=== PATIENT | female | born 1965 | race Caucasian/White ===

== ENCOUNTER 2019-07-11 16:09 | Emergency (ER) | payer OTHER, SELFPAY ==
--- NOTE | 2019-07-11 16:19 | ED.GENADULT ---
HPI - General Adult General Chief complaint: Unspecified Stated complaint: headache/diarrhea Time Seen by Provider: 07/11/19 16:36 Source: patient and RN notes reviewed Mode of arrival: ambulatory Limitations: no limitations History of Present Illness HPI narrative: Patient's had a one-week history of beginning on , 07/04/2019 of loose watery stools. She has had 5-6 loose stools per day without any blood in the stools or black stools. She has not had any heartburn or reflux sensation. She has had no nausea and no vomiting. She has not had any fever, no ear pain, no nasal drainage, no sore throat. For the past 1 month beginning in May 2019 she has felt fatigued, more tired than normal, and does not tolerate the cold well. She thinks she might have hypothyroidism. She contacted her PCP and they are arranging for her to see an aircraft technician on July 22, 2019. She has had a 35 pound weight gain in the past 1 year without change in her diet. There is no personal or family medical history of hypo-or hyperthyroidism. She has not had any feeling of irregular heartbeat or slow heart rate. She has not had any leg swelling. She has had no chest pain no shortness of breath. She has had no abdominal pain. She drives a school bus. She is not aware of having had contact with anyone with any types of gastroenteritis or intestinal problems. She has no history of irritable bowel syndrome, Crohn's disease, ulcerative colitis, or pancreatitis. She has had a cholecystectomy and a hysterectomy. At this time she is wanting something for the diarrhea in order to wait for the timeframe that she sees a scrap dealer, knowing that we cannot perform blood test at this facility. Related Data Home Medications Medication Instructions Recorded Confirmed atorvastatin 10 mg PO DAILY 07/11/19 07/11/19 buspirone 5 mg PO BID 07/11/19 07/11/19 diclofenac sodium 75 mg PO BID 07/11/19 07/11/19 lisinopril 20 mg PO DAILY 07/11/19 07/11/19 Allergies Allergy/AdvReac Type Severity Reaction Status Date / Time amoxicillin Allergy Mild Unverified 12/20/13 22:51 doxycycline Allergy Unknown Unverified 12/20/13 22:51 Sulfa (Sulfonamide Allergy Unknown Verified 12/20/13 22:51 Antibiotics) tetracycline Allergy Unknown Verified 12/20/13 22:51 Review of Systems Review of Systems: Narrative: CONSTITUTIONAL: Denies fever, chills, or sweats. Noncontributory except as pertains to the past medical history and history of present illness. EYES: Denies visual changes, redness, or discharge. ENT: Denies rhinorrhea, congestion, sore throat, or otalgia. CARDIOVASCULAR: Denies chest pain, palpitations, or edema. RESPIRATORY: Denies cough or dyspnea. GASTROINTESTINAL: Denies abdominal pain, nausea, vomiting, or diarrhea. GENITOURINARY: Denies dysuria or hematuria. SKIN: Denies rash or itching. MUSCULOSKELETAL: Denies back pain, joint pain, or myalgia. NEUROLOGIC: Denies headache, numbness, or weakness. PSYCHIATRIC: Denies anxiety or depression. PMFSH Social History Social History Gender identity (if verbalized by the patient): Female Comments At time of signature, I have reviewed and agree with nursing past medical, surgical, social, and family history.Please see nursing chart for further information. There is no relevant family history pertinent to the presenting complaint. Exam Narrative: Exam Narrative: GENERAL: Well-appearing, well-nourished, and in no acute distress. HEAD: Normocephalic, atraumatic. EYES: PERRLA and EOMI. EARS: TM's clear bilaterally and the canals are clear. NOSE: Nares clear, no rhinorrhea or epistaxis. THROAT:Mucous membranes moist.Oropharynx normal without erythema or exudates. NECK: Supple. No adenopathy of the neck, supraclavicular, axillary, or inguinal areas. RESPIRATORY: No respiratory distress. Airway patent. Respirations non-labored. Clear to auscultation. There are no wheezes, no rales, no retractions, no use acc
[2019-07-11 16:29] VITALS: BP 130/73; PULSE 87; RESP 18; TEMP 37.2; O2SAT 98
== END 2019-07-11 16:52 | disposition home or self-care (01) ==
LOC: EXPCOLL 16:22
PROVIDERS: Emergency Provider Family Medicine; PCP Nurse Practitioner Family
DX: R19.7 Diarrhea, unspecified (principal); E78.00 Pure hypercholesterolemia, unspecified; I10 Essential (primary) hypertension; F41.9 Anxiety disorder, unspecified; F32.9 Major depressive disorder, single episode, unspecified
CPT/HCPCS: 99211; G0463

== ENCOUNTER 2022-03-13 18:41 | Emergency (ER) | payer OTHER, SELFPAY ==
[2022-03-13 18:57] VITALS: BP 136/71; PULSE 91; RESP 16; TEMP 36.3; O2SAT 98
--- NOTE | 2022-03-13 19:41 | ED.GENADULT ---
HPI - General Adult General Chief complaint: Upper Respiratory Infection Stated complaint: headache,[place] Source: patient Mode of arrival: ambulatory Limitations: no limitations History of Present Illness HPI narrative: Patient presents for evaluation of sinus symptoms for the last 2 weeks. Symptoms include sinus congestion, thick mucopurulent discharge, and headache. She has an occasional cough but smokes half pack per day. She denies any fever, chills, nausea, vomiting, otalgia, sore throat, shortness of breath. She states several individuals around her have been sick as of late but she is unsure what their exact diagnosis was. She took 2 COVID test at home, both of which were negative. She has been taking Mucinex DM which seems to help. No additional complaints or concerns. Related Data Home Medications Medication Instructions Recorded Confirmed atorvastatin 10 mg tablet 10 mg PO DAILY 03/13/22 03/13/22 cholestyramine (with sugar) 4 gram 1 ea PO DAILY 03/13/22 03/13/22 powder for susp in a packet diclofenac sodium 75 mg 75 mg PO DIRECTED 03/13/22 03/13/22 tablet,delayed release Allergies Allergy/AdvReac Type Severity Reaction Status Date / Time amoxicillin Allergy Mild Rash Verified 03/13/22 18:51 doxycycline Allergy Unknown Rash Verified 03/13/22 18:51 Sulfa (Sulfonamide Allergy Unknown Rash Verified 03/13/22 18:51 Antibiotics) tetracycline Allergy Unknown Rash Verified 03/13/22 18:51 Review of Systems Review of Systems: CONSTITUTIONAL: Denies fever, chills, or sweats. EYES: Denies visual changes, redness, or discharge. ENT: Reports sinus congestion mucopurulent discharge from her nares. Denies sore throat and otalgia. CARDIOVASCULAR: Denies chest pain, palpitations, or edema. RESPIRATORY: Denies cough or dyspnea. GASTROINTESTINAL: Denies abdominal pain, nausea, vomiting, or diarrhea. GENITOURINARY: Denies dysuria or hematuria. SKIN: Denies rash or itching. MUSCULOSKELETAL: Denies back pain, joint pain, or myalgia. NEUROLOGIC: Reports headache. Denies numbness, dizziness, or weakness. PSYCHIATRIC: Denies anxiety or depression. [facility] Past Medical History Medical History Tobacco use Surgical History Surgical History No pertinent past surgical history Family History Family History Mother Family history non-contributory Social History Social History Smoking packs per day: 0.5 Smoking cigarettes per day: 10.0 Alcohol intake: never Substance use: never Living arrangements: with family Gender identity (if verbalized by the patient): Female Sexual Orientation (if Verbalized by the Patient): Straight or Heterosexual Spiritual care concerns: No Exam Narrative: GENERAL: Well-appearing, well-nourished, and in no acute distress. HEAD: Normocephalic, atraumatic. EYES: PERRLA and EOMI. ENT: Nares thick mucopurulent discharge noted on nasal mucosa. No epistaxis. Mucous membranes moist. Oropharynx without tonsillar hypertrophy exudate or other lesions. Bilateral TMs pearly neil nonbulging. Bilateral frontal maxillary sinus tenderness NECK: Supple. No adenopathy or masses. No carotid bruits or JVD CHEST: Clear to auscultation. No respiratory distress. No wheezes rales or rhonchi HEART: Regular rate and rhythm. No murmur heard. Normal peripheral pulses. ABDOMEN: Soft, nontender, nondistended, normal active bowel sounds. EXTREMITIES: Normal range of motion. No edema. SKIN: Warm, dry, no rash. NEURO: No focal deficits. Alert and oriented x3. PSYCH: Normal mood and affect. Course Course Emergency Course: This is a 56-year-old female who presented for evaluation of sinus symptoms. She meets criteria for ABRS based on symptom nature and duration of time with which she has been symptomatic. She
== END 2022-03-13 19:42 | disposition home or self-care (01) ==
PROVIDERS: Emergency Provider Nurse Practitioner; PCP Nurse Practitioner Family
DX: J32.9 Chronic sinusitis, unspecified (principal); F17.210 Nicotine dependence, cigarettes, uncomplicated
CPT/HCPCS: 99213; G0463